=== PATIENT | female | born 1995 | race Caucasian/White ===

== ENCOUNTER 2022-06-22 23:53 | Emergency (ER) | payer OTHER ==
[2022-06-23] MEDS ORDERED: Sodium Chloride 0.9% 1000 ML 1,000 ML IV STA (00:15)
[2022-06-23] MEDS ORDERED: Zofran 4 MG/2 ML VIAL IV ONE (00:15)
[2022-06-23] MEDS ORDERED: MORPHINE SULFATE 2 MG INJ IV ONE (00:15)
--- NOTE | 2022-06-23 00:35 | ERPHSYRPT ---
- History of Present Illness Time Seen by Provider: 06/23/22 00:29 Exam Limitations: no limitations Patient Subjective Stated Complaint: pt states she has been having pain in abdomen and when she urinates. pt states she has been feeling this way for 5 hours. states pain is 5/10 Triage Nursing Assessment: pt ambulated back to room without assistance, pt is alert and oriented x4, holding abdomen and states that pain is radiating to right upper abdomen. Physician History: Patient is a 26-year-old female presents emergency department for evaluation of abdominal pain. Abdominal pain started approximately 5 hours ago. Patient states she had eaten dinner when pain started. Pain described as an ache that is localized to the right flank and right upper quadrant. Patient states that she is experiencing dysuria as well. Patient has a history of urinary tract infection. Patient states she is experiencing similar symptoms. No trauma. No fever. No nausea vomiting or diarrhea. Patient denies a possibility of . Patient that she is otherwise healthy. She voices no other complaints or concerns at this time. Portions of this note were created with voice recognition technology. There may be grammatical, spelling, punctuation or sound alike errors Timing/Duration: today Activities at Onset: none Quality: aching Abdominal Pain Onset Location: RUQ, flank Pain Radiation: no radiation Severity of Pain-Max: moderate Severity of Pain-Current: mild Modifying Factors: Improves With: other (Palpation. Pain seems to worsen after meals.) Associated Symptoms: denies symptoms, No chest pain, No fever/chills, No nausea, No neck pain, No shortness of breath, No vomiting Previous symptoms: same symptoms as today Allergies/Adverse Reactions: No Known Drug Allergies Allergy (Unverified 06/23/22 00:16) Hx Tetanus, Diphtheria Vaccination/Date Given: No Travel Risk - International Travel Have you traveled outside of the country in past 3 weeks: No - Coronavirus Screening Are you exhibiting any of the following symptoms?: No Close contact with a COVID-19 positive Pt in past 14-21 Days: No - Vaccine Status Have you recieved a Covid-19 vaccination: No - Review of Systems Constitutional: No Symptoms, No Fever, No Chills Eyes: No Symptoms Ears, Nose, & Throat: No Symptoms Respiratory: No Symptoms, No Cough, No Dyspnea Cardiac: No Symptoms, No Chest Pain, No Edema, No Syncope Abdominal/Gastrointestinal: No Symptoms, No Abdominal Pain, No Nausea, No Vomiting, No Diarrhea Genitourinary Symptoms: No Symptoms, No Dysuria Musculoskeletal: No Symptoms, No Back Pain, No Neck Pain Skin: No Symptoms, No Rash Neurological: No Symptoms, No Dizziness, No Focal Weakness, No Sensory Changes Psychological: No Symptoms Endocrine: No Symptoms Hematologic/Lymphatic: No Symptoms Immunological/Allergic: No Symptoms All Other Systems: Reviewed and Negative - Past Medical History Pertinent Past Medical History: No - Past Surgical History Past Surgical History: No - Social History Smoking Status: Current every day smoker Drug Use: marijuana - Female History Hx Last Menstrual Period: 06/16/22 Hx Now: No - Nursing Vital Signs Nursing Vital Signs: Initial Vital Signs Temperature 97.2 F 06/23/22 00:00 Pulse Rate 105 H 06/23/22 00:00 Respiratory Rate 18 06/23/22 00:00 Blood Pressure 153/114 06/23/22 00:00 O2 Sat by Pulse Oximetry 100 06/23/22 00:00 Pain Scale Pain Intensity 5 - Physical Exam General Appearance: no apparent distress, alert Eye Exam: PERRL/EOMI, eyes nml inspection Ears, Nose, Throat Exam: normal ENT inspection, pharynx normal, moist mucous membranes Neck Exam: normal inspection, non-tender, supple, full range of motion Respiratory Exam: normal breath sounds, lungs clear, airway intact, No respiratory distress Cardiovascular Exam: regular rate/rhythm, normal heart sounds, normal peripheral pulses Gastrointestinal/Abdomen Exam: soft, tenderness (Right upper quadrant tenderness to palpation. Some tenderness to palpation right flank and right CVA tenderness.), No mass Back Exam: normal inspection, normal range of motion, No CVA tenderness, No vertebral tenderness Extremity Exam: normal inspection, normal range of motion, pelvis stable Neurologic Exam: alert, oriented x 3, cooperative, normal mood/affect, nml cerebellar function, sensation nml, No motor deficits Skin Exam: normal color, warm, dry Lymphatic Exam: No adenopathy SpO2 Interpretation: normal SpO2: 100 O2 Delivery: Room Air - Course Nursing assessment & vital signs reviewed: Yes - CT Exams Abdomen/Pelvis CT Interpretation: Tele-radiologist Report (Prominent fluid in the small bowel without dilation suggestive of enteritis, left ovarian cyst, small amount of fluid in the deep pelvis) - Radiology Ultrasound Exam Gallbladder Ultrasound: discussed w/radiologist (Per activities therapist report, no gallbladder stones seen. Excessive overlying bowel gas) Ordered Tests: Active Orders 24 hr Category Date Time Status IV Insertion STAT Care 06/23/22 00:15 Active ABDOMEN AND PELVIS W/0 CONTRAS [CT] Stat Exams 06/23/22 00:15 Taken GALLBLADDER [US] Stat Exams 06/23/22 01:20 Ordered CBC W DIFF Stat Lab 06/23/22 00:35 Completed CMP Stat Lab 06/23/22 00:35 Completed CULTURE,URINE Stat Lab 06/23/22 00:35 Received HCG,QUALITATIVE URINE Stat Lab 06/23/22 00:35 Completed LIPASE Stat Lab 06/23/22 00:35 Completed TROPONIN Q4H Lab 06/23/22 00:35 Completed TROPONIN Q4H Lab 06/23/22 04:15 Ordered TROPONIN Q4H Lab 06/23/22 08:15 Ordered UA W/RFX CULTURE Stat Lab 06/23/22 00:35 Completed Medication Summary Discontinued Medications Generic Name Dose Route Start Last Admin Trade Name Aryaq PRN Reason Stop Dose Admin Sodium Chloride 1,000 mls @ 999 mls/hr 06/23/22 00:15 06/23/22 00:44 Sodium Chloride 0.9% 1000 Ml IV 06/23/22 01:15 999 mls/hr .Q1H1M STA Administration Sodium Chloride Confirm 06/23/22 00:40 Sodium Chloride 0.9% 1000 Ml Administered 06/23/22 00:41 Dose 1,000 mls @ ud .ROUTE .STK-MED ONE Morphine Sulfate 2 mg 06/23/22 00:15 06/23/22 00:42 Morphine Sulfate 2 Mg/Ml Inj IV 06/23/22 00:16 2 mg STAT ONE Administration Morphine Sulfate Confirm 06/23/22 00:40 Morphine Sulfate 2 Mg/Ml Inj Administered 06/23/22 00:41 Dose 2 mg .ROUTE .STK-MED ONE Ondansetron HCl 4 mg 06/23/22 00:15 06/23/22 00:42 Ondansetron Hcl 4 Mg/2 Ml Vial IV 06/23/22 00:16 4 mg STAT ONE Administration Ondansetron HCl Confirm 06/23/22 00:40 Ondansetron Hcl 4 Mg/2 Ml Vial Administered 06/23/22 00:41 Dose 4 mg .ROUTE .STK-MED ONE Lab/Rad Data: Laboratory Result Diagrams 06/23/22 00:35 06/23/22 00:35 Laboratory Results 06/23/22 06/23/22 06/23/22 Range/Units 00:35 00:35 00:35 WBC 14.2 H (4.0-10.5) x10^3/uL RBC 4.67 (4.1-5.4) x10^6/uL Hgb 14.2 (12.0-16.0) g/dL Hct 43.2 (35-47) % MCV 92.5 (78-100) fL MCH 30.4 (26-32) pg MCHC 32.9 (32-36) g/dL RDW 13.4 (11.5-14.0) % Plt Count 322 (150-450) x10^3/uL MPV 9.8 (7.5-11.0) fL Gran % 56.6 (36.0-66.0) % Immature Gran % (Auto) 0.2 (0.00-0.4) % Nucleat RBC Rel Count 0.0 (0.00-0.1) % Eos # (Auto) 0.26 (0-0.5) x10^3/uL Immature Gran # (Auto) 0.03 (0.00-0.03) x10^3u/L Absolute Lymphs (auto) 4.21 (1.0-4.6) x10^3/uL Absolute Monos (auto) 1.62 H (0.0-1.3) x10^3/uL Absolute Nucleated RBC 0.00 (0.00-0.01) x10^3u/L Lymphocytes % 29.6 (24.0-44.0) % Monocytes % 11.4 (0.0-12.0) % Eosinophils % 1.8 (0.00-5.0) % Basophils % 0.4 (0.0-0.4) % Absolute Granulocytes 8.06 H (1.4-6.9) x10^3/uL Basophils # 0.05 (0-0.4) x10^3/uL Sodium 139 (137-145) mmol/L Potassium 4.2 (3.5-5.1) mmol/L Chloride 105 (98-107) mmol/L Carbon Dioxide 24 (22-30) mmol/L Anion Gap 14.0 (5-15) MEQ/L BUN 12 (7-17) mg/dL Creatinine 0.74 (0.52-1.04) mg/dL Estimated GFR > 60.0 ML/MIN Glucose 105 (74-106) mg/dL Calcium 9.6 (8.4-10.2) mg/dL Total Bilirubin 0.30 (0.2-1.3) mg/dL AST 25 (14-36) U/L ALT 23 (0-35) U/L Alkaline Phosphatase 65 (38-126) U/L Troponin I (0.000-0.034) ng/mL Serum Total Protein 8.8 H (6.3-8.2) g/dL Albumin 5.0 (3.5-5.0) g/dL Lipase 109 (23-300) U/L Urinalys Dipstick Clnc MAIN LAB Urine Color YELLOW (YELLOW) Urine Appearance CLEAR (CLEAR) Urine pH 5.5 (5-6) Ur Specific V[place]ar <=1.005 (1.005-1.025) POC Urine Protein Conf NEGATIVE (Negative) Urine Ketones NEGATIVE (NEGATIVE) Urine Nitrite NEGATIVE (NEGATIVE) Urine Bilirubin NEGATIVE (NEGATIVE) Urine Urobilinogen 0.2 (0-1) mg/dL Urine Leukocytes SMALL (NEGATIVE) Urine WBC (Auto) 16-25 (0-5) /HPF Urine RBC (Auto) 0-2 (0-2) /HPF U Epithel Cells (Auto) RARE (FEW) /HPF Urine Bacteria (Auto) FEW (NEGATIVE) /HPF Urine RBC MODERATE (0-5) Valeriy/ul Urine Mucus (Auto) SLIGHT (NEGATIVE) /HPF Ur Culture Indicated? YES Urine Glucose NEGATIVE (NEGATIVE) mg/dL Urine HCG, Qual (Negative) 06/23/22 06/23/22 Range/Units 00:35 00:35 WBC (4.0-10.5) x10^3/uL RBC (4.1-5.4) x10^6/uL Hgb (12.0-16.0) g/dL Hct (35-47) % MCV (78-100) fL MCH (26-32) pg MCHC (32-36) g/dL RDW (11.5-14.0) % Plt Count (150-450) x10^3/uL MPV (7.5-11.0) fL Gran % (36.0-66.0) % Immature Gran % (Auto) (0.00-0.4) % Nucleat RBC Rel Count (0.00-0.1) % Eos # (Auto) (0-0.5) x10^3/uL Immature Gran # (Auto) (0.00-0.03) x10^3u/L Absolute Lymphs (auto) (1.0-4.6) x10^3/uL Absolute Monos (auto) (0.0-1.3) x10^3/uL Absolute Nucleated RBC (0.00-0.01) x10^3u/L Lymphocytes % (24.0-44.0) % Monocytes % (0.0-12.0) % Eosinophils % (0.00-5.0) % Basophils % (0.0-0.4) % Absolute Granulocytes (1.4-6.9) x10^3/uL Basophils # (0-0.4) x10^3/uL Sodium (137-145) mmol/L Potassium (3.5-5.1) mmol/L Chloride (98-107) mmol/L Carbon Dioxide (22-30) mmol/L Anion Gap (5-15) MEQ/L BUN (7-17) mg/dL Creatinine (0.52-1.04) mg/dL Estimated GFR ML/MIN Glucose (74-106) mg/dL Calcium (8.4-10.2) mg/dL Total Bilirubin (0.2-1.3) mg/dL AST (14-36) U/L ALT (0-35) U/L Alkaline Phosphatase (38-126) U/L Troponin I 0.015 (0.000-0.034) ng/mL Serum Total Protein (6.3-8.2) g/dL Albumin (3.5-5.0) g/dL Lipase (23-300) U/L Urinalys Dipstick Clnc Urine Color (YELLOW) Urine Appearance (CLEAR) Urine pH (5-6) Ur Specific V[place] (1.005-1.025) POC Urine Protein Conf (Negative) Urine Ketones (NEGATIVE) Urine Nitrite (NEGATIVE) Urine Bilirubin (NEGATIVE) Urine Urobilinogen (0-1) mg/dL Urine Leukocytes (NEGATIVE) Urine WBC (Auto) (0-5) /HPF Urine RBC (Auto) (0-2) /HPF U Epithel Cells (Auto) (FEW) /HPF Urine Bacteria (Auto) (NEGATIVE) /HPF Urine RBC (0-5) Valeriy/ul Urine Mucus (Auto) (NEGATIVE) /HPF Ur Culture Indicated? Urine Glucose (NEGATIVE) mg/dL Urine HCG, Qual NEGATIVE (Negative) - Progress Progress: improved Progress Note: Patient reassessed. Pain improved. Her work-up reveals a UTI with a leukocytosis. Patient also has an enteritis. With a left ovarian cyst. IV antibiotics infused. A prescription for Keflex for the patient's pharmacy. Ultrasound gallbladder negative for cholelithiasis/cholecystitis. Will discharge home. Patient agrees to follow-up with primary care doctor within 48 hours for evaluation. Portions of this note were created with voice recognition technology. There may be grammatical, spelling, punctuation or sound alike errors 06/23/22 02:35 Counseled pt/family regarding: lab results, diagnosis, need for follow-up, rad results - Departure Departure Disposition: Home Clinical Impression: UTI (urinary tract infection), Leukocytosis, Enteritis, Left ovarian cyst Condition: Stable Critical Care Time: No Referrals: DOCTOR,NO FAMILY [Primary Care Provider] - Follow up/PCP as directed JORDY PERALTA MD [ACTIVE STAFF] - Follow up/PCP as directed Additional Instructions: Discharge/Care Plan RADHA NATION MINOO BLAIR was seen on 06/23/22 in the Emergency Room. The patient was counseled regarding Diagnosis,Lab results, Imaging studies, need for follow up and when to return to the Emergency Room. Prescriptions given: Discharge Note I have spoken with the patient and/or caregivers. I have explained the patient's condition, diagnosis and treatment plan based on the information available to me at this time. I have answered the patient's and/or caregiver's questions and addressed any concerns. The patient and/or caregivers have as good understanding of the patient's diagnosis, condition and treatment plan as can be expected at this point. The vital signs have been stable. The patient's condition is stable and appropriate for discharge from the emergency department. The patient will pursue further outpatient evaluation with the primary care physician or other designated or consulting physician as outlined in the discharge instructions. The patient and/or caregivers are agreeable to this plan of care and follow-up instructions have been explained in detail. The patient and/or caregivers have received these instruction. The patient/and or caregivers are aware that any significant change in condition or worsening of symptoms should prompt an immediate return to this or the closest emergency department or call 911. Prescriptions: Cephalexin Mh 500 mg [Keflex 500 mg] 500 mg PO TID 7 Days #21 cap
[2022-06-23] MEDS ORDERED: MORPHINE SULFATE 2 MG INJ ONE (00:40)
[2022-06-23] MEDS ORDERED: Sodium Chloride 0.9% 1000 ML 1,000 ML ONE (00:40)
[2022-06-23] MEDS ORDERED: Zofran 4 MG/2 ML VIAL ONE (00:40)
[2022-06-23 00:44] LABS: Absolute Neutrophil Ct (ANC) 8.06 x10^3/uL (1.4-6.9); Basophil (Absolute #) 0.05 x10^3/uL (0-0.4); Eosinophil % 1.8 % (0.00-5.0); Eosinophil (Absolute #) 0.26 x10^3/uL (0-0.5); Hematocrit 43.2 % (35-47); Hemoglobin 14.2 g/dL (12.0-16.0); Lymphocyte (Absolute #) 4.21 x10^3/uL (1.0-4.6); Lymphocytes % 29.6 % (24.0-44.0); Mean Cell Volume 92.5 fL (78-100); Mean Corpuscular Hemoglobin 30.4 pg (26-32); Mean Corpuscular Hgb Concent. 32.9 g/dL (32-36); Mean Platelet Volume 9.8 fL (7.5-11.0); Monocyte (Absolute #) 1.62 x10^3/uL (0.0-1.3); Monocytes % 11.4 % (0.0-12.0); Neutrophil % 56.6 % (36.0-66.0); Platelet Count 322 x10^3/uL (150-450); Red Blood Count 4.67 x10^6/uL (4.1-5.4); Red Cell Distribution Width 13.4 % (11.5-14.0); White Blood Count 14.2 x10^3/uL (4.0-10.5)
[2022-06-23 00:46] LABS: Bacteria FEW /HPF (NEGATIVE); Epithelial Cells RARE /HPF (FEW); Mucus SLIGHT /HPF (NEGATIVE); RBC 0-2 /HPF (0-2)
[2022-06-23 00:49] LABS: Appearance CLEAR (CLEAR)
[2022-06-23 00:50] LABS: Bilirubin NEGATIVE (NEGATIVE); Dipstick done @ ? MAIN LAB; Glucose NEGATIVE (NEGATIVE); Ketones NEGATIVE (NEGATIVE); Nitrite NEGATIVE (NEGATIVE); Ph 5.5 (5-6); Protein,Urine Dip NEGATIVE (Negative); RBC MODERATE Ery/ul (0-5); Specific Gravity <=1.005 (1.005-1.025); Urobilinogen 0.2 mg/dL (0-1)
[2022-06-23 00:51] LABS: Urine Cultured Indicated? YES
[2022-06-23 00:55] LABS: ALKALINE PHOSPHATASE 65 U/L (38-126); BLOOD UREA NITROGEN 12 mg/dL (7-17); CHLORIDE 105 mmol/L (98-107); Calcium 9.6 mg/dL (8.4-10.2); Carbon Dioxide 24 mmol/L (22-30); Creatinine 1 0.74 mg/dL (0.52-1.04); EST GLOMERULAR FILTRATION RATE > 60.0 ML/MIN; Glucose 105 mg/dL (74-106); LIPASE 109 U/L (23-300); Potassium 4.2 mmol/L (3.5-5.1); SGOT/AST 25 U/L (14-36); SGPT/ALT 23 U/L (0-35); SODIUM 139 mmol/L (137-145); Total Protein 8.8 g/dL (6.3-8.2)
[2022-06-23] MEDS ORDERED: ROCEPHIN 1 Gm-D5w 50 ml Bag** 1 G/50 ML IVPB IV STA (02:30)
[2022-06-23] MEDS ORDERED: ROCEPHIN 1 Gm-D5w 50 ml Bag** 1 G/50 ML IVPB IV ONE (02:32)
[2022-06-23 03:10] LABS: Slide Review 1 YES
[2022-06-23 03:24] VITALS: BP 134/75; PULSE 78; O2SAT 98
--- NOTE | 2022-06-24 19:02 | XRAY ---
Exam: Right Upper Quadrant Ultrasound with attention to the gallbladder from 06/23/2022. Comparison: CT of the abdomen and pelvis without IV contrast from 06/23/2022. Indication: 26-year-old female with right upper quadrant abdominal pain. Findings: Sonographic examination of the right upper quadrant reveals a normal-sized gallbladder. No gallstones are seen. There are some mild internal echoes which could represent reverberation artifact. The chief nuclear medicine technologist stated there was excessive overlying bowel gas. The possibility of some intraluminal biliary sludge is not excluded. The glallbladder wall measures 1.9 mm, which is normal. No pericholecystic fluid is seen. The proximal common bile duct measures 2.8 mm, which is normal. No intrahepatic biliary duct distention is seen. The liver is of normal size and reveals a uniform echogenicity. No liver mass is seen. Normal color blood flow within the portal vein toward the liver is seen. The visualized right kidney measures 10.4 cm in length and reveals no evidence of solid mass or hydronephrosis. Several transverse images of the pancreas reveals no abnormality of the pancreatic head or proximal body portion of the pancreas. The distal body and tail of the pancreas were obscured by bowel gas.. No free intraperitoneal fluid is seen within the right upper quadrant. Impression: 1. I see no bright echogenic stones within the gallbladder lumen. However, there are increased echoes within the gallbladder lumen. I am not sure whether this is due to reverberation artifact or intraluminal biliary sludge. There is no gallbladder wall thickening. 2. The liver appears unremarkable, and there is no evidence of biliary duct distention. 3. The remainder of the right upper quadrant ultrasound appears unremarkable. The chief nuclear medicine technologist did leave a note that the patient had excessive bowel gas overlying the right upper quadrant.
--- NOTE | 2022-06-25 16:50 | XRAY ---
Exam: CT of the abdomen and pelvis without IV contrast from 06/23/2022. CTDI: 10.27 mGy Comparison: None. Indication: 26-year-old female with flank pain; history of UTI per patient. Technique: Non-IV contrast axial images were obtained through the abdomen and pelvis. Reconstructed coronal and sagittal images were created and reviewed. No oral contrast was given. Findings: The CT research support specialist image reveals abundant stool within the cecum and most of the ascending colon. The stomach is somewhat prominent with apparent food and/or secretions within the gastric fundus. The urinary bladder appears moderately distended. The lung bases are clear. I see abundant fluid and secretions/food within the stomach lumen with an air-fluid level anteriorly. I wonder whether the patient has just eaten. The small bowel is not distended, although there appear to be some fluid-filled small bowel loops overlying the left hemiabdomen. This is nonspecific. Consider gastroenteritis. The distal small bowel appears unremarkable. Again, there is abundant stool within the cecum and most of the ascending colon. I see no findings to suggest bowel obstruction or bowel wall thickening. I see no findings of appendicitis within the right lower quadrant. There are a few very small mesenteric lymph nodes within the right lower quadrant-nonspecific. There is interposition of the hepatic flexure of the colon anteriorly with respect to the liver in the right upper quadrant. The liver appears of normal size and reveals no gross mass or intrahepatic biliary duct distention. Assessment of the solid organs is limited on a non-IV contrast study only. The gallbladder lumen appears of unremarkable size and reveals no dense calcifications within it. Spleen is of normal size and reveals no mass. No gross abnormality of the pancreas is seen. The adrenal glands appear normal size and configuration. The abdominal aorta is of normal diameter revealing no aneurysm or abnormal retroperitoneal lymphadenopathy. No free intraperitoneal air is seen. There is a tiny amount of protrusion of intraperitoneal fat into the subcutaneous fat at the umbilicus on the midline sagittal image #115. No bowel containing ventral hernia is seen. The kidneys appear of normal size and shape. No gross renal mass, renal calculi, or hydronephrosis is seen. A minimal extrarenal pelvis is seen within each kidney. The ureters appear of normal diameter and reveal no ureterolith. The urinary bladder is distended and reveals no bladder stone. The uterus is anteflexed and appears of unremarkable size. There is a mild amount of free intraperitoneal fluid within the cul-de-sac measuring about 3.6 cm in width and 1.2 cm in AP depth on axial image #82. The right ovary appears unremarkable. The left ovary is remarkable for a 2.2 cm in diameter dominant follicle or small cyst on axial image #79. Given the presence of free fluid within the cul-de-sac, I wonder whether this is leaking. No other pelvic mass or abnormal pelvic lymphadenopathy is seen. The urinary bladder is moderately distended and reveals no significant abnormality. The deep pelvic sidewalls appear unremarkable. The skeleton reveals no acute fracture or aggressive bone lesion. Minimal anterior vertebral endplate spurring is seen within the visualized lower thoracic spine. Impression: 1. I see no evidence of renal/ureteral calculi, hydronephrosis, or obstructive uropathy. 2. There is a 2.2 cm in diameter dominant follicle or small cyst within the left ovary. I wonder whether this may be leaking, as there is a mild amount of free intraperitoneal fluid within the cul-de-sac. The right ovary appears unremarkable. 3. I see no findings of appendicitis within right lower quadrant.. A few very small nonspecific mesenteric lymph nodes are seen within the right lower quadrant. 4. The stomach lumen is prominent and filled significantly with fluid and secretions/food with an air-fluid level noted anteriorly. I also note some proximal small bowel fluid-filled small bowel loops. These are not significantly dilated. Consider gastroenteritis. The distal small bowel appears unremarkable. 5. Abundant fecal residue is seen within the cecum and ascending colon. No bowel obstruction or bowel wall thickening is seen. No free air or free fluid is seen. 6. No other acute process is seen within the abdomen or pelvis.
== END 2022-06-23 03:24 | disposition home or self-care (01) ==
LOC: ED 23:53
DX: N39.0 Urinary tract infection, site not specified (principal); D72.829 Elevated white blood cell count, unspecified; K52.9 Noninfective gastroenteritis and colitis, unspecified; N83.202 Unspecified ovarian cyst, left side; R10.11 Right upper quadrant pain; R30.0 Dysuria; Z72.0 Tobacco use; Z28.310 Unvaccinated for COVID-19
CPT/HCPCS: 36000; 36415; 74176; 76705; 80053; 81015; 81025; 83690; 84484; 85025; 87086; 96360; 96374; 96375; 99284; J0696; J2270; J2405

== ENCOUNTER 2022-09-07 09:36 | Emergency (ER) | payer OTHER ==
[2022-09-07 10:07] VITALS: BP 134/94; O2SAT 97
[2022-09-07 10:51] LABS: Group A Strep DETECTED (NEGATIVE)
--- NOTE | 2022-09-07 11:04 | ERPHSYRPT ---
- History of Present Illness Time Seen by Provider: 09/07/22 10:00 Source: patient Exam Limitations: no limitations Patient Subjective Stated Complaint: c/o of a sore throat and headache since yesterday with exposure to strep Triage Nursing Assessment: Pt brought to the ER by her boyfriend, nasra finney but does have a low grade fever, rates throat pain as 4/10, throat is red and swollen with no white puscules noted, pt works at [employer], pulses normal, skin n/w/d, doesn't appear to be in any distress Physician History: Patient is a 27-year-old white female presents with a complaint of sore throat headache and cough. She was exposed to strep while at a family gathering for [employer]. She has had some fever. Timing/Duration: abrupt onset, yesterday Severity: moderate ENT Location: throat Prearrival Treatment: no prearrival treatment Modifying Factors: Improves With: coughing Associated Symptoms: fever, chills, headache, sore throat, difficulty swallowing Allergies/Adverse Reactions: No Known Drug Allergies Allergy (Verified 09/07/22 10:07) Hx Tetanus, Diphtheria Vaccination/Date Given: No Hx Influenza Vaccination/Date Given: No Hx Pneumococcal Vaccination/Date Given: No Travel Risk - International Travel Have you traveled outside of the country in past 3 weeks: No - Coronavirus Screening Are you exhibiting any of the following symptoms?: Yes Symptoms: Cough: New Onset Close contact with a COVID-19 positive Pt in past 14-21 Days: No - Vaccine Status Have you recieved a Covid-19 vaccination: No - Review of Systems Constitutional: Fever, Chills Eyes: No Symptoms Ears, Nose, & Throat: No Symptoms, Throat Pain Respiratory: No Cough, No Dyspnea Cardiac: No Chest Pain, No Edema, No Syncope Abdominal/Gastrointestinal: No Abdominal Pain, No Nausea, No Vomiting, No Diarrhea Genitourinary Symptoms: No Dysuria Musculoskeletal: No Back Pain, No Neck Pain Skin: No Rash Neurological: No Dizziness, No Focal Weakness, No Sensory Changes Psychological: No Symptoms Endocrine: No Symptoms All Other Systems: Reviewed and Negative - Past Medical History Pertinent Past Medical History: No - Past Surgical History Past Surgical History: No - Social History Smoking Status: Current every day smoker Exposure to second hand smoke: Yes Drug Use: marijuana Patient Lives Alone: No - Female History Hx Last Menstrual Period: 08/31/2022 Hx Now: No - Nursing Vital Signs Nursing Vital Signs: Initial Vital Signs Temperature 99.3 F 09/07/22 09:54 Pulse Rate 93 H 09/07/22 09:54 Blood Pressure 134/94 09/07/22 09:54 O2 Sat by Pulse Oximetry 97 09/07/22 09:54 Pain Scale Pain Intensity 4 - Physical Exam General Appearance: mild distress, alert Eye Exam: bilateral eye: PERRL, EOMI Ear Exam: bilateral ear: auricle normal, canal normal, TM normal Nasal Exam: normal inspection Throat Exam: moist mucus membranes, pharynx swelling, pharynx tenderness, No tonsillar exudate Neck Exam: normal inspection, non-tender, supple Cardiovascular/Respiratory Exam: normal breath sounds, regular rate/rhythm Abdominal Exam: non-tender, soft Neurologic Exam: alert, oriented x 3, sensation nml, No motor deficits Skin Exam: normal color, warm, dry SpO2 Interpretation: normal SpO2: 97 O2 Delivery: Room Air - Course Nursing assessment & vital signs reviewed: Yes Lab/Rad Data: Laboratory Results 09/07/22 Range/Units 10:30 Influenza Type A Ag Pending Influenza Type B Ag Pending RSV (PCR) Pending SARS-CoV-2 (PCR) Pending Group A Strep Antibody DETECTED (NEGATIVE) - Progress Progress: improved Progress Note: 09/07/22 11:01 Strep pharyngitis - Departure Departure Disposition: Home Clinical Impression: Strep pharyngitis Condition: Stable Critical Care Time: No Referrals: DOCTOR,NO FAMILY [Primary Care Provider] - Follow up/PCP as directed Instructions: Sore Throat, Adult (DC), Strep Throat (DC) Prescriptions: Amoxicillin 875 mg PO BID 10 Days #20 tablet
[2022-09-07 11:05] LABS: INFLUENZA A NEGATIVE (NEGATIVE); INFLUENZA B NEGATIVE (NEGATIVE); RESPIRATORY SYNCTIAL VIRUS NEGATIVE (Negative); SARS-CoV-2 Xpert Express NEGATIVE (NEGATIVE)
[2022-09-07 11:45] VITALS: PULSE 80
== END 2022-09-07 11:45 | disposition home or self-care (01) ==
LOC: ED 09:36
DX: J02.0 Streptococcal pharyngitis (principal); B95.0 Streptococcus, group A, as the cause of diseases classified elsewhere; R51.9 Headache, unspecified; R05.1 Acute cough; R50.9 Fever, unspecified; Z20.818 Contact with and (suspected) exposure to other bacterial communicable diseases; Z28.310 Unvaccinated for COVID-19; Z72.0 Tobacco use
CPT/HCPCS: 0241U; 87651; 99282

== ENCOUNTER 2023-07-16 22:30 | Emergency (ER) | payer OTHER ==
[2023-07-16 22:48] VITALS: BP 164/102; PULSE 81; RESP 16; TEMP 97.8; O2SAT 99
[2023-07-16] MEDS ORDERED: TobraDEX Eye Drops ONE (22:50)
--- NOTE | 2023-07-16 22:51 | ERPHSYRPT ---
- History of Present Illness Time Seen by Provider: 07/16/23 22:48 Source: patient Exam Limitations: no limitations Patient Subjective Stated Complaint: Pt reports yesterday she woke up with left eye redness/irritation/tearing. Irritation/redness/tearing has continued to t chencho and worsened. Reports pressure in left eye that is causing minimal discomfort rating it approx 2/10. Triage Nursing Assessment: Pt alert and oriented x3. No apparent respiratory distress. Ambulated to ED cot without difficulty. Accompanied by family. Left eye red. No discharge at this time. Physician History: Pt reports yesterday she woke up with left eye redness/irritation/tearing. Irritation/redness/tearing has continued to today and worsened. Reports pressure in left eye that is causing minimal discomfort rating it approx 2/10 Timing/Duration: today Location: left eye Severity: moderate Apparent Injury: no Associated Symptoms: redness Chemical Exposure: No Trauma: No Welding Arc/Tanning Bed Exposure: No Allergies/Adverse Reactions: No Known Drug Allergies Allergy (Verified 07/16/23 22:35) Hx Tetanus, Diphtheria Vaccination/Date Given: No Hx Influenza Vaccination/Date Given: No Hx Pneumococcal Vaccination/Date Given: No Travel Risk - International Travel Have you traveled outside of the country in past 3 weeks: No - Coronavirus Screening Are you exhibiting any of the following symptoms?: No Close contact with a COVID-19 positive Pt in past 14-21 Days: No - Vaccine Status Have you recieved a Covid-19 vaccination: No - Review of Systems Constitutional: No Symptoms Eyes: Eye Redness, Itchy Ears, Nose, & Throat: No Symptoms Respiratory: No Symptoms Cardiac: No Symptoms Abdominal/Gastrointestinal: No Symptoms Genitourinary Symptoms: No Symptoms Musculoskeletal: No Symptoms Skin: No Symptoms Neurological: No Symptoms Psychological: No Symptoms Endocrine: No Symptoms Hematologic/Lymphatic: No Symptoms - Past Medical History Pertinent Past Medical History: No - Past Surgical History Past Surgical History: No - Social History Smoking Status: Current every day smoker Exposure to second hand smoke: Yes Drug Use: marijuana Patient Lives Alone: No - Female History Hx Last Menstrual Period: 07/06/23 Hx Now: No - Nursing Vital Signs Nursing Vital Signs: Initial Vital Signs Temperature 97.8 F 07/16/23 22:35 Pulse Rate 81 07/16/23 22:35 Respiratory Rate 16 07/16/23 22:35 Blood Pressure 164/102 07/16/23 22:35 O2 Sat by Pulse Oximetry 99 07/16/23 22:35 Pain Scale Pain Intensity 2 - Physical Exam Vision Acuity Degree Evaluation Phase: Corrected Vision Acuity Right Eye: 20/30 Vision Acuity Left Eye: 20/20 Eye Exam: left eye: conjunctival inflammation, bilateral eye: PERRL, EOMI Ears, Nose, Throat Exam: normal ENT inspection Neck Exam: normal inspection Respiratory Exam: normal breath sounds Cardiovascular Exam: regular rate/rhythm Gastrointestinal Exam: soft Extremity Exam: normal inspection Neurologic: alert, oriented x 3 SpO2: 99 - Course Nursing assessment & vital signs reviewed: Yes Ordered Tests: Medication Summary Generic Name Dose Route Start Last Admin Trade Name Freq PRN Reason Stop Dose Admin Tobramycin/Dexamethasone 4 ml 07/17/23 10:00 Tobramycin Sulfate/Dexameth 2.5 Ml Bottle Eye Drops OP 08/16/23 09:59 QID RAEANN - Progress Progress: unchanged Counseled pt/family regarding: diagnosis, need for follow-up Medical Desision Making - Risk of complications Minimal Risk: Minimal risk of morbidity - Departure Departure Disposition: Home Clinical Impression: Conjunctivitis Qualifiers: Conjunctivitis type: acute Acute conjunctivitis type: follicular Laterality: left Qualified Code(s): H10.012 - Acute follicular conjunctivitis, left eye Condition: Stable Critical Care Time: No Referrals: DOCTOR,NO FAMILY [Primary Care Provider] - Follow up/PCP as directed Instructions: Conjunctivitis (pink eye) Additional Instructions: Discharge/Care Plan RADHA NATION MINOO BLAIR was seen on 07/16/23 in the Emergency Room. The patient was counseled regarding Diagnosis,Lab results, Imaging studies, need for follow up and when to return to the Emergency Room. Prescriptions given: Discharge Note I have spoken with the patient and/or caregivers. I have explained the patient's condition, diagnosis and treatment plan based on the information available to me at this time. I have answered the patient's and/or caregiver's questions and addressed any concerns. The patient and/or caregivers have as good understanding of the patient's diagnosis, condition and treatment plan as can be expected at this point. The vital signs have been stable. The patient's condition is stable and appropriate for discharge from the emergency department. The patient will pursue further outpatient evaluation with the primary care physician or other designated or consulting physician as outlined in the discharge instructions. The patient and/or caregivers are agreeable to this plan of care and follow-up instructions have been explained in detail. The patient and/or caregivers have received these instruction. The patient/and or caregivers are aware that any significant change in condition or worsening of symptoms should prompt an immediate return to this or the closest emergency department or call 911. NATIONRADHA Wolfe was seen on 07/16/23 n the Emergency Room. At that time you were treated for an emergent condition, during your visit Laboratory, Radiology and/or other procedures may have been ordered. It is very important that you follow-up with your Primary Care Physician NO FAMILY DOCTOR within the next 24-48 hours to review your Emergency Room visit and the final results of testing that was ordered. Some test results such as Urine Cultures, Blood Cultures, and other cultures if ordered will not be finalized for 24-48 hours. If you do not have a Primary Care Provider please call the medical records department at [phone] ext [phone] to obtain a copy of your results or you may sign into our patient portal to obtain these results by visiting us @ [email or web address] and completing the following steps: 1. Click on the Patient Portal link 2. Click the Patient Self Enrollment Link to complete the enrollment form and entering your 3. Once the enrollment form is completed you will receive an email with a temporary ID and password at the email address you provided. 4. Next choose a user name and password. Your user name must be at least 4 characters long and your password must be at least 4 characters long. 5. Choose a security question from the list and provide your answer to the question. If you already have signed into the Health Portal you may access your Health Care Information 02/05 by the following steps: 1. Login to our website @ [email or web address] 2. Enter your original user name and password. FAQS The [facility] Health Portal is an online tool that contains your Lab Results, Radiology Reports, Visit History, Discharge Instructions and Health Summary Lab and Radiology Results will not be available for 72 hours on the portal. The Portal is a secure site, passwords are encryted and URLs are re-written so they cannot be copied and pasted. You and authorized family members are the only ones who can access your Portal. Also there is a timeout feature that protects your information if you leave the Portal page open. If you have technical difficulty please use the Contact Us link on the page this will allow you to submit any questions you have regarding the Portal or you may contact the Medical Record Department at [phone] ext [phone].
[2023-07-17] MEDS ORDERED: TobraDEX Eye Drops OP SCH (10:00)
== END 2023-07-16 22:55 | disposition home or self-care (01) ==
LOC: ED 22:30
DX: H10.012 Acute follicular conjunctivitis, left eye (principal); Z28.310 Unvaccinated for COVID-19; Z72.0 Tobacco use
CPT/HCPCS: 99281; A9270-GY

== ENCOUNTER 2023-09-10 18:18 | Emergency (ER) | payer OTHER ==
[2023-09-10 18:44] VITALS: RESP 20; TEMP 98.6
--- NOTE | 2023-09-10 19:19 | ERPHSYRPT ---
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 States went to work at 11am today and her head began hurting around 12no on. Patient worked approx 6 hours today. Triage Nursing Assessment: Patient ambulated back to ER. She is alert and oriented. No SOB. Skin tone normal. Non-rebreather mask applied per Posion control recommendations; set at 15L. RANKIN WNL. Physician History: C/O headache from natural gas exposure at work. States went to work at 11am today and her head began hurting around 12noon. Patient worked approx 6 hours today.Patient stated that other coworkers also has the same symptoms and she is also being seen in ER. Timing/Duration: today Severity: mild Associated Symptoms: headaches Allergies/Adverse Reactions: No Known Drug Allergies Allergy (Verified 09/10/23 18:34) Home Medications: No Reportable Medications [No Reported Medications] 09/10/23 [History] Hx Tetanus, Diphtheria Vaccination/Date Given: Yes Hx Influenza Vaccination/Date Given: No Hx Pneumococcal Vaccination/Date Given: No Immunizations Up to Date: Yes Travel Risk - International Travel Have you traveled outside of the country in past 3 weeks: No - Coronavirus Screening Are you exhibiting any of the following symptoms?: No Close contact with a COVID-19 positive Pt in past 14-21 Days: No - Vaccine Status Have you recieved a Covid-19 vaccination: No - Review of Systems Constitutional: No Fever, No Chills Eyes: No Symptoms Ears, Nose, & Throat: No Symptoms Respiratory: No Cough, No Dyspnea Cardiac: No Chest Pain, No Edema, No Syncope Abdominal/Gastrointestinal: No Abdominal Pain, No Nausea, No Vomiting, No Diarrhea Genitourinary Symptoms: No Dysuria Musculoskeletal: No Back Pain, No Neck Pain Skin: No Rash Neurological: Headache, No Dizziness, No Focal Weakness, No Sensory Changes Psychological: No Symptoms Endocrine: No Symptoms All Other Systems: Reviewed and Negative - Past Medical History Pertinent Past Medical History: No - Past Surgical History Past Surgical History: No - Social History Smoking Status: Current every day smoker How long have you smoked: 10 years Exposure to second hand smoke: No Drug Use: none Patient Lives Alone: No - Female History Hx Last Menstrual Period: NOW Hx Now: No - Nursing Vital Signs Nursing Vital Signs: Initial Vital Signs Temperature 98.6 F 09/10/23 18:34 Pulse Rate 100 H 09/10/23 18:34 Respiratory Rate 20 09/10/23 18:34 Blood Pressure 180/102 09/10/23 18:34 O2 Sat by Pulse Oximetry 98 09/10/23 18:34 Pain Scale Pain Intensity 4 - Physical Exam General Appearance: no apparent distress, alert Eye Exam: PERRL/EOMI, eyes nml inspection Ears, Nose, Throat Exam: normal ENT inspection, TMs normal, pharynx normal, moist mucous membranes Neck Exam: normal inspection, non-tender, supple, full range of motion Respiratory Exam: normal breath sounds, lungs clear, No respiratory distress Cardiovascular Exam: regular rate/rhythm, normal heart sounds, normal peripheral pulses Gastrointestinal/Abdomen Exam: soft, normal bowel sounds, No tenderness, No mass Back Exam: normal inspection, normal range of motion, No CVA tenderness, No vertebral tenderness Extremity Exam: normal inspection, normal range of motion, pelvis stable Neurologic Exam: alert, oriented x 3, cooperative, normal mood/affect, nml cerebellar function, nml station & gait, sensation nml, No motor deficits Skin Exam: normal color, warm, dry, No rash Lymphatic Exam: No adenopathy SpO2: 98 - Course Nursing assessment & vital signs reviewed: Yes EKG Interpreted by Me: Sinus Rhythm Ordered Tests: Active Orders 24 hr Category Date Time Status ABG [ARTERIAL BLOOD GASES] Stat Lab 09/10/23 19:28 Completed CBC W DIFF Stat Lab 09/10/23 19:15 Completed CMP Stat Lab 09/10/23 19:15 Completed VBG [VENOUS BLOOD GAS] Stat Lab 09/10/23 19:25 Completed Lab/Rad Data: Laboratory Result Diagrams 09/10/23 19:15 09/10/23 19:15 Laboratory Results 09/10/23 09/10/23 09/10/23 Range/Units 19:28 19:25 19:15 WBC (4.0-10.5) x10^3/uL RBC (4.1-5.4) x10^6/uL Hgb (12.0-16.0) g/dL Hct (35-47) % MCV (78-100) fL MCH (26-32) pg MCHC (32-36) g/dL RDW (11.5-14.0) % Plt Count (150-450) x10^3/uL MPV (7.5-11.0) fL Gran % (36.0-66.0) % Immature Gran % (Auto) (0.00-0.4) % Nucleat RBC Rel Count (0.00-0.1) % Eos # (Auto) (0-0.5) x10^3/uL Immature Gran # (Auto) (0.00-0.03) x10^3u/L Absolute Lymphs (auto) (1.0-4.6) x10^3/uL Absolute Monos (auto) (0.0-1.3) x10^3/uL Absolute Nucleated RBC (0.00-0.01) x10^3u/L Lymphocytes % (24.0-44.0) % Monocytes % (0.0-12.0) % Eosinophils % (0.00-5.0) % Basophils % (0.0-0.4) % Absolute Granulocytes (1.4-6.9) x10^3/uL Basophils # (0-0.4) x10^3/uL Puncture Site RIGHT RADIAL pCO2 37 (35-45) mmHg pO2 439 H* (75-100) mmHg pO2/FiO2 Ratio 100.0 % Base Excess -0.2 (-2.0-2.0) O2 Saturation 96.2 (94-100) g/dF ABG pH 7.42 (7.35-7.45) ABG HCO3 24.0 (22-28) ABG O2 Sat (Measured) 99.9 (95-100) % Yazan Test YES VBG pH 7.43 H (7.32-7.42) VBG pCO2 at Pat Temp 39 L (42-55) mm/Hg VBG pO2 at Pat Temp 38 (25-40) mm/Hg VBG HCO3 25.9 (22-28) meq/L VBG O2 Sat (Azam) 70.7 L (95-100) VBG Base Excess 1.6 (-2.0-2.0) VBG Hemoglobin 15.4 VBG Carboxyhemoglobin 6.4 (0.0-6.9) % T HGB A-a Gradient 228 a/A Ratio 0.66 Hemoglobin 15.7 Carboxyhemoglobin 2.7 (0.0-6.9) % THgb Methemoglobin 1.0 L (1.4-1.5) % POC Potassium 3.3 L (3.5-5.1) Temperature 37.0 C POC O2 Flow Rate 100 % Sodium 140 (137-145) mmol/L Potassium 3.4 L 3.4 L (3.5-5.1) mmol/L Chloride 105 (98-107) mmol/L Carbon Dioxide 24 (22-30) mmol/L Anion Gap 14.7 (5-15) MEQ/L BUN 8 (7-17) mg/dL Creatinine 0.73 (0.52-1.04) mg/dL Estimated GFR 114.8 ML/MIN Glucose 95 (74-106) mg/dL Calcium 9.7 (8.4-10.2) mg/dL Total Bilirubin 0.60 (0.2-1.3) mg/dL AST 23 (14-36) U/L ALT 21 (0-35) U/L Alkaline Phosphatase 66 (38-126) U/L Serum Total Protein 8.8 H (6.3-8.2) g/dL Albumin 5.1 H (3.5-5.0) g/dL 09/10/23 Range/Units 19:15 WBC 11.2 H (4.0-10.5) x10^3/uL RBC 4.73 (4.1-5.4) x10^6/uL Hgb 14.5 (12.0-16.0) g/dL Hct 44.1 (35-47) % MCV 93.2 (78-100) fL MCH 30.7 (26-32) pg MCHC 32.9 (32-36) g/dL RDW 12.7 (11.5-14.0) % Plt Count 356 (150-450) x10^3/uL MPV 9.6 (7.5-11.0) fL Gran % 63.4 (36.0-66.0) % Immature Gran % (Auto) 0.3 (0.00-0.4) % Nucleat RBC Rel Count 0.0 (0.00-0.1) % Eos # (Auto) 0.10 (0-0.5) x10^3/uL Immature Gran # (Auto) 0.03 (0.00-0.03) x10^3u/L Absolute Lymphs (auto) 3.09 (1.0-4.6) x10^3/uL Absolute Monos (auto) 0.82 (0.0-1.3) x10^3/uL Absolute Nucleated RBC 0.00 (0.00-0.01) x10^3u/L Lymphocytes % 27.7 (24.0-44.0) % Monocytes % 7.4 (0.0-12.0) % Eosinophils % 0.9 (0.00-5.0) % Basophils % 0.3 (0.0-0.4) % Absolute Granulocytes 7.08 H (1.4-6.9) x10^3/uL Basophils # 0.03 (0-0.4) x10^3/uL Puncture Site pCO2 (35-45) mmHg pO2 (75-100) mmHg pO2/FiO2 Ratio % Base Excess (-2.0-2.0) O2 Saturation (94-100) g/dF ABG pH (7.35-7.45) ABG HCO3 (22-28) ABG O2 Sat (Measured) (95-100) % Yazan Test VBG pH (7.32-7.42) VBG pCO2 at Pat Temp (42-55) mm/Hg VBG pO2 at Pat Temp (25-40) mm/Hg VBG HCO3 (22-28) meq/L VBG O2 Sat (Azam) (95-100) VBG Base Excess (-2.0-2.0) VBG Hemoglobin VBG Carboxyhemoglobin (0.0-6.9) % T HGB A-a Gradient a/A Ratio Hemoglobin Carboxyhemoglobin (0.0-6.9) % THgb Methemoglobin (1.4-1.5) % POC Potassium (3.5-5.1) Temperature C POC O2 Flow Rate % Sodium (137-145) mmol/L Potassium (3.5-5.1) mmol/L Chloride (98-107) mmol/L Carbon Dioxide (22-30) mmol/L Anion Gap (5-15) MEQ/L BUN (7-17) mg/dL Creatinine (0.52-1.04) mg/dL Estimated GFR ML/MIN Glucose (74-106) mg/dL Calcium (8.4-10.2) mg/dL Total Bilirubin (0.2-1.3) mg/dL AST (14-36) U/L ALT (0-35) U/L Alkaline Phosphatase (38-126) U/L Serum Total Protein (6.3-8.2) g/dL Albumin (3.5-5.0) g/dL - Progress Progress: improved Counseled pt/family regarding: lab results, diagnosis, need for follow-up Medical Desision Making - Diagnostic Testing Diagnostic test were ordered, analyzed, and reviewed by me: Yes - Risk of complications Minimal Risk: Minimal risk of morbidity Low Risk: Low risk of morbidity from additional dx testing or treatment - Departure Departure Disposition: Home Clinical Impression: Natural gas exposure Condition: Stable Critical Care Time: No Referrals: DOCTOR,NO FAMILY [Primary Care Provider] - Follow up/PCP as directed Instructions: Carbon Monoxide Poisoning (DC), Carbon Monoxide (CO) Poisoning Additional Instructions: Discharge/Care Plan NATIONRADHA BLAIR was seen on 09/10/23 in the Emergency Room. The patient was counseled regarding Diagnosis,Lab results, Imaging studies, need for follow up and when to return to the Emergency Room. Prescriptions given: Discharge Note I have spoken with the patient and/or caregivers. I have explained the patient's condition, diagnosis and treatment plan based on the information available to me at this time. I have answered the patient's and/or caregiver's questions and addressed any concerns. The patient and/or caregivers have as good understanding of the patient's diagnosis, condition and treatment plan as can be expected at this point. The vital signs have been stable. The patient's condition is stable and appropriate for discharge from the emergency department. The patient will pursue further outpatient evaluation with the primary care physician or other designated or consulting physician as outlined in the discharge instructions. The patient and/or caregivers are agreeable to this plan of care and follow-up instructions have been explained in detail. The patient and/or caregivers have received these instruction. The patient/and or caregivers are aware that any significant change in condition or worsening of symptoms should prompt an immediate return to this or the closest emergency department or call 911. RADHA NATION MINOO BLAIR was seen on 09/10/23 n the Emergency Room. At that time you were treated for an emergent condition, during your visit Laboratory, Radiology and/or other procedures may have been ordered. It is very important that you follow-up with your Primary Care Physician NO FAMILY DOCTOR within the next 24-48 hours to review your Emergency Room visit and the final results of testing that was ordered. Some test results such as Urine Cultures, Blood Cultures, and other cultures if ordered will not be finalized for 24-48 hours. If you do not have a Primary Care Provider please call the medical records dep artment at [phone] ext [phone] to obtain a copy of your results or you may sign into our patient portal to obtain these results by visiting us @ [email or web address] and completing the following steps: 1. Click on the Patient Portal link 2. Click the Patient Self Enrollment Link to complete the enrollment form and entering your 3. Once the enrollment form is completed you will receive an email with a temporary ID and password at the email address you provided. 4. Next choose a user name and password. Your user name must be at least 4 characters long and your password must be at least 4 characters long. 5. Choose a security question from the list and provide your answer to the question. If you already have signed into the Health Portal you may access your Health Care Information 02/05 by the following steps: 1. Login to our website @ [email or web address] 2. Enter your original user name and password. FAQS The [facility] Health Portal is an online tool that contains your Lab Results, Radiology Reports, Visit History, Discharge Instructions and Health Summary Lab and Radiology Results will not be available for 72 hours on the portal. The Portal is a secure site, passwords are encryted and URLs are re-written so they cannot be copied and pasted. You and authorized family members are the only ones who can access your Portal. Also there is a timeout feature that protects your information if you leave the Portal page open. If you have technical difficulty please use the Contact Us link on the page this will allow you to submit any questions you have regarding the Portal or you may contact the Medical Record Department at [phone] ext [phone].
[2023-09-10 19:23] LABS: Absolute Neutrophil Ct (ANC) 7.08 x10^3/uL (1.4-6.9); BASOPHIL % 0.3 % (0.0-0.4); Basophil (Absolute #) 0.03 x10^3/uL (0-0.4); Eosinophil % 0.9 % (0.00-5.0); Hematocrit 44.1 % (35-47); Hemoglobin 14.5 g/dL (12.0-16.0); IMMATURE GRAN # 0.03 x10^3u/L (0.00-0.03); IMMATURE GRAN % 0.3 % (0.00-0.4); Lymphocyte (Absolute #) 3.09 x10^3/uL (1.0-4.6); Lymphocytes % 27.7 % (24.0-44.0); Mean Cell Volume 93.2 fL (78-100); Mean Corpuscular Hemoglobin 30.7 pg (26-32); Mean Corpuscular Hgb Concent. 32.9 g/dL (32-36); Mean Platelet Volume 9.6 fL (7.5-11.0); Monocyte (Absolute #) 0.82 x10^3/uL (0.0-1.3); Monocytes % 7.4 % (0.0-12.0); Neutrophil % 63.4 % (36.0-66.0); Platelet Count 356 x10^3/uL (150-450); Red Blood Count 4.73 x10^6/uL (4.1-5.4); Red Cell Distribution Width 12.7 % (11.5-14.0); White Blood Count 11.2 x10^3/uL (4.0-10.5)
[2023-09-10 19:31] LABS: VBG BASE EXCESS 1.6 (-2.0-2.0); VBG CARBOXYHEMOGLOBIN 6.4 % T HGB (0.0-6.9); VBG HCO3- 25.9 meq/L (22-28); VBG HEMOGLOBIN 15.4; VBG O2 SATURATION 70.7 (95-100); VBG POTASSIUM 3.3 (3.5-5.1); VBG pH 7.43 (7.32-7.42)
[2023-09-10 19:33] LABS: A-aADO2 228; ABG HEMOGLOBIN 15.7; ABG POTASSIUM 3.4 (3.5-5.1); ARTERIAL BLD GAS O2 SATURATION 99.9 % (95-100); ARTERIAL BLOOD GAS BASE EXCESS -0.2 (-2.0-2.0); ARTERIAL BLOOD GAS FIO2 100 %; ARTERIAL BLOOD GAS PCO2 37 mmHg (35-45); ARTERIAL BLOOD GAS PO2 439 mmHg (75-100); ARTERIAL BLOOD GAS pH 7.42 (7.35-7.45); CARBOXYHEMOGLOBIN 2.7 % THgb (0.0-6.9); HGB O2 SAT 96.2 g/dF (94-100); paO2 pAO1 0.66
[2023-09-10 19:34] LABS: ABG SITE RIGHT RADIAL; ALLEN TEST OK? YES
[2023-09-10 19:36] LABS: ALBUMIN 5.1 g/dL (3.5-5.0); ANION GAP 14.7 MEQ/L (5-15); BILIRUBIN,TOTAL 0.6 mg/dL (0.2-1.3); Calcium 9.7 mg/dL (8.4-10.2); Creatinine 1 0.73 mg/dL (0.52-1.04); EST GLOMERULAR FILTRATION RATE 114.8 ML/MIN; Potassium 3.4 mmol/L (3.5-5.1); Total Protein 8.8 g/dL (6.3-8.2)
[2023-09-10 20:01] VITALS: BP 170/90; PULSE 82; O2SAT 100
== END 2023-09-10 20:01 | disposition home or self-care (01) ==
LOC: ED 18:18
DX: T59.891A Toxic effect of other specified gases, fumes and vapors, accidental (unintentional), initial encounter (principal); R51.9 Headache, unspecified; Z28.310 Unvaccinated for COVID-19; Z72.0 Tobacco use
CPT/HCPCS: 36415; 36600; 80053; 82375; 82803; 82805; 85025; 99282

== ENCOUNTER 2023-10-13 22:54 | Emergency (ER) | payer OTHER ==
--- NOTE | 2023-10-13 22:58 | ERPHSYRPT ---
- History of Present Illness Time Seen by Provider: 10/13/23 22:58 Source: patient Exam Limitations: no limitations Physician History: This is a 28-year-old overweight white female who woke up this morning with left foot pain on the medial aspect of her foot. Patient went to work today and was on her feet all day and the pain was worsening. She denies recollection of any specific foot injury or fall. She does not have any deformity. Patient did have surgery on the lateral aspect of her left foot in the distant past. Patient is not on any medications and she has no known drug allergies. She can weight-bear but it is mildly painful. Patient is a daily smoker of cigarettes. Method of Injury: other (No injury or fall) Occurred: this morning Quality: aching Severity of Pain-Max: mild (Moderate) Severity of Pain-Current: mild Lower Extremities Pain: foot: left (Medial aspect) Modifying Factors: Improves With: movement Associated Symptoms: other (Can bear weight but has pain in the medial aspect with ambulation) Allergies/Adverse Reactions: No Known Drug Allergies Allergy (Verified 10/13/23 23:04) Home Medications: No Reportable Medications [No Reported Medications] 09/10/23 [History] Hx Tetanus, Diphtheria Vaccination/Date Given: Yes Hx Influenza Vaccination/Date Given: No Hx Pneumococcal Vaccination/Date Given: No Travel Risk - International Travel Have you traveled outside of the country in past 3 weeks: No - Coronavirus Screening Are you exhibiting any of the following symptoms?: No Close contact with a COVID-19 positive Pt in past 14-21 Days: No - Vaccine Status Have you recieved a Covid-19 vaccination: No - Review of Systems Constitutional: No Symptoms Eyes: No Symptoms Ears, Nose, & Throat: No Symptoms Respiratory: No Symptoms Cardiac: No Symptoms Abdominal/Gastrointestinal: No Symptoms Genitourinary Symptoms: No Symptoms Musculoskeletal: Other (Pain medial aspect left foot. No injury) Skin: No Symptoms Neurological: No Symptoms Psychological: No Symptoms Endocrine: No Symptoms Hematologic/Lymphatic: No Symptoms Immunological/Allergic: No Symptoms All Other Systems: Reviewed and Negative - Past Medical History Pertinent Past Medical History: No - Past Surgical History Past Surgical History: No - Social History Smoking Status: Current every day smoker How long have you smoked: 10 years Exposure to second hand smoke: No Drug Use: none Patient Lives Alone: No - Nursing Vital Signs Nursing Vital Signs: Initial Vital Signs Temperature 98.4 F 10/13/23 23:05 Pulse Rate 80 10/13/23 23:05 Respiratory Rate 16 10/13/23 23:05 Blood Pressure 176/94 10/13/23 23:05 O2 Sat by Pulse Oximetry 99 10/13/23 23:05 Pain Scale Pain Intensity 6 - Physical Exam General Appearance: no apparent distress, alert, anxiety, obese Eyes, Ears, Nose, Throat Exam: normal ENT inspection, moist mucous membranes Neck Exam: normal inspection, non-tender, supple, full range of motion Cardiovascular/Respiratory Exam: chest non-tender, no respiratory distress Gastrointestinal/Abdominal Exam: non-tender Back Exam: normal inspection, normal range of motion, No CVA tenderness, No vertebral tenderness Hips Exam: bilateral: non-tender, normal inspection, normal range of motion, no evidence of injury Legs Exam: bilateral leg: non-tender, normal inspection, normal range of motion, no evidence of injury Knees Exam: bilateral knee: non-tender, normal inspection, normal range of motion, no evidence of injury Ankle Exam: bilateral ankle: non-tender, normal inspection, normal range of motion, no evidence of injury Foot Exam: right foot: non-tender, left foot: soft tissue tenderness (Medial aspect), bilateral foot: normal inspection, normal range of motion, no evidence of injury Neuro/Tendon Exam: normal sensation, normal motor functions, normal tendon functions, responds to pain, no evidence tendon injury Mental Status Exam: alert, oriented x 3, cooperative Skin Exam: normal color, warm, dry SpO2 Interpretation: normal O2 Delivery: Room Air - Course Nursing assessment & vital signs reviewed: Yes Ordered Tests: Active Orders 24 hr Category Date Time Status Fabien Bandage Application -[facility] STAT Care 10/13/23 23:45 Ordered FOOT (MINIMUM 3 VIEWS) Stat Exams 10/13/23 23:39 Taken - Progress Progress: unchanged, pain not gone completely, re-examined Progress Note: 10/13/23 23:49 This patient's medical issue is 1 of low complexity the level of complexity in the workup performed is based on review the patient's past medical history, review the patient's medication list, review the patient's drug allergy list, history of present illness and physical findings on examination. Workup includes x-ray of the left foot. I interpreted the x-ray of the left foot. I do not see an acute fracture or dislocation. Counseled pt/family regarding: diagnosis, need for follow-up, rad results Medical Desision Making - Independent Historian Additional History obtained from: Spouse - Diagnostic Testing Diagnostic test were ordered, analyzed, and reviewed by me: Yes Radiological Interpretation: Interpreted by me - Risk of complications Minimal Risk: Minimal risk of morbidity - Departure Departure Disposition: Home Clinical Impression: Left foot pain Condition: Stable Critical Care Time: No Referrals: ENEDINA QURESHI DO [Primary Care Provider] - Follow up/PCP as directed Additional Instructions: Ice pack or ice bath 3 times a day for the next 48 hours. Take Tylenol 650 mg orally every 4 hours as needed while awake. Take ibuprofen 600 mg with food 3 times a day for 5 days. Wear your Fabien wrap for comfort. Follow-up with podiatry of choice, or, [facility] orthopedic clinic. It is a walk-in clinic. You do not need an appointment. It is Tuesday through Tuesday 8 AM to 10 AM.
[2023-10-13 23:16] VITALS: RESP 16; TEMP 98.4; O2SAT 99
[2023-10-14 00:06] VITALS: BP 157/94; PULSE 74
--- NOTE | 2023-10-14 08:42 | XRAY ---
Indication: Pain. No known injury. Comparison: None 3 nonweightbearing views left foot demonstrates incidental navicular accessory ossicles. No other bony, articular, or soft tissue abnormalities.
== END 2023-10-14 00:22 | disposition home or self-care (01) ==
LOC: ED 22:54
DX: M79.672 Pain in left foot (principal); Z28.310 Unvaccinated for COVID-19; Z72.0 Tobacco use
CPT/HCPCS: 73630; 99283